=== PATIENT | female | born 1945 | race Two or more races ===

== ENCOUNTER 2017-03-08 15:30 | Emergency (ER) | payer MEDICARE ==
[~2017-03-08] VITALS: Ht 127 cm; Wt 89.5 kg
[2017-03-08 16:47] LABS: Urine Bacteria NONE SEEN /hpf (None Seen); Urine Blood Negative /uL (Negative); Urine Specific Gravity 1.007 (1.001-1.035); Urine WBC 2 /hpf (0 - 5)
[2017-03-08 16:50] LABS: Basophils # (auto) 0.1 uL; Eosinophils # (auto) 0.5 uL; Eosinophils % (auto) 5.5 % (0.0-7.0); Hematocrit 39.6 % (36.0-46.0); Hemoglobin 13.5 g/dL (12.2-16.2); Lymphocytes # (auto) 2.3 uL; Mean Corpuscular Hgb Conc. 34.2 g/dL (32.0-36.0); Mean Corpuscular Volume 96.7 fL (80.0-100.0); Monocytes # (auto) 0.7 uL; Monocytes % (auto) 7.9 % (0.0-12.0); Neutrophils # (auto) 5.1 uL; Neutrophils % (auto) 58.6 % (37.0-80.0); Platelet Count (auto) 283 10^3/uL (140-450); Red Cell Distribution Width 13.6 % (11.8-14.3); White Blood Cell 8.7 10^3/uL (4.4-10.8)
[2017-03-08 17:04] LABS: Alanine Aminotransferase 33 U/L (13-56); Anion Gap 11 (5-15); Aspartate Aminotransferase 34 U/L (15-37); BUN/Creatinine Ratio 17.7; Blood Urea Nitrogen 17 mg/dL (7-18); Calcium 9.1 mg/dL (8.5-10.1); Carbon Dioxide 26 mmol/L (21-32); Chloride 101 mmol/L (98-107); GFR African American 73 mL/min; GFR Non-African American 61 mL/min; Glucose 189 mg/dL (74-106); Potassium 4.3 mmol/L (3.5-5.1); Sodium 138 mmol/L (136-145)
[2017-03-08 17:09] LABS: Alkaline Phosphatase 114 U/L (45-117); Bilirubin, Total 0.4 mg/dL (0.2-1.0); Total Protein 8.1 g/dL (6.4-8.2)
[2017-03-08 19:22] VITALS: BP 152/70
== END 2017-03-08 20:41 | disposition home or self-care (01) ==
LOC: ER 15:43
DX: R60.0 Localized edema (principal); M19.90 Unspecified osteoarthritis, unspecified site; E11.9 Type 2 diabetes mellitus without complications; I11.0 Hypertensive heart disease with heart failure; I50.42 Chronic combined systolic (congestive) and diastolic (congestive) heart failure
CPT/HCPCS: 36415; 71046; 80053; 81001; 83880; 84484; 85025; 93005; 93970

== ENCOUNTER 2017-03-21 14:53 | Emergency (ER) | payer MEDICARE ==
[~2017-03-21] VITALS: Ht 121.9 cm; Wt 89.8 kg
[2017-03-21 15:16] VITALS: BP 102/59
== END 2017-03-21 19:16 | disposition home or self-care (01) ==
LOC: ER 14:53
DX: S92.351A Displaced fracture of fifth metatarsal bone, right foot, initial encounter for closed fracture (principal); S80.01XA Contusion of right knee, initial encounter; I10 Essential (primary) hypertension; E11.9 Type 2 diabetes mellitus without complications; W19.XXXA Unspecified fall, initial encounter; Y93.89 Activity, other specified; Y92.89 Other specified places as the place of occurrence of the external cause; Y99.8 Other external cause status
CPT/HCPCS: 29515; 73562; 73630

== ENCOUNTER 2022-07-25 22:45 | Inpatient (IN) | payer MEDICARE ==
[~2022-07-25] VITALS: Ht 152.4 cm; Wt 91.8 kg
[2022-07-25] MEDS ORDERED: CALCIUM GLUC 1,000mg/50ml-NS 50 ML IV ONE (23:00)
[2022-07-25] MEDS ORDERED: SODIUM BICARBONATE 8.4 % INJ 50ML VIAL IV ONE (23:00)
[2022-07-25 23:23] LABS: Basophils # (auto) 0.1 10 ^3/uL (0-0.2); Basophils % (auto) 0.7 % (0.0-2.0); Eosinophils # (auto) 0.1 10 ^3/uL (0-0.8); Eosinophils % (auto) 1.5 % (0.0-7.0); Hematocrit 33.7 % (36.0-46.0); Hemoglobin 11.6 g/dL (12.2-16.2); Lymphocytes # (auto) 0.8 10 ^3/uL (0.4-5.4); Lymphocytes % (auto) 9.7 % (10.0-50.0); Mean Corpuscular Hemoglobin 31.6 pg (28.0-32.0); Mean Corpuscular Hgb Conc. 34.5 g/dL (32.0-36.0); Mean Corpuscular Volume 91.6 fL (80.0-100.0); Monocytes # (auto) 0.5 10 ^3/uL (0-1.3); Monocytes % (auto) 6.3 % (0.0-12.0); Neutrophils # (auto) 6.9 10 ^3/uL (1.6-8.6); Neutrophils % (auto) 81.8 % (37.0-80.0); Red Blood Cells 3.68 10^6/uL (4.0-5.20); Red Cell Distribution Width 12.5 % (11.8-14.3); White Blood Cell 8.5 10^3/uL (4.4-10.8)
[2022-07-25 23:33] LABS: INR 1.03 (0.9-1.15); Partial Thromboplastin Time 31.4 sec (24.6-33.4)
[2022-07-25 23:40] LABS: Calcium 8.5 mg/dL (8.5-10.1); Magnesium 2.7 mg/dL (1.6-2.6); Potassium 4.9 mmol/L (3.5-5.1)
[2022-07-25 23:43] LABS: Bilirubin, Total 0.3 mg/dL (0.2-1.0); Total Protein 7.2 g/dL (6.4-8.2)
[2022-07-26] MEDS ORDERED: NITROGLYCERIN 0.4 MG SL TAB SL PRN (06:45)
[2022-07-26] MEDS ORDERED: DEXTROSE (50%) 50ML SYRG IV PRN (06:45)
[2022-07-26] MEDS ORDERED: ONDANSETRON HCL 4 MG/2 ML VIAL IV PRN (06:45)
[2022-07-26] MEDS ORDERED: MORPHINE SULFATE INJ 2 MG/ml SYRG IV PRN (06:45)
[2022-07-26 07:05] LABS: Urine Bacteria NONE SEEN /hpf (None Seen); Urine Blood Negative /uL (Negative); Urine Specific Gravity 1.012 (1.001-1.035); Urine WBC 723 /hpf (0 - 5); Urine WBC Clumps PRESENT /hpf (None Seen)
[2022-07-26] MEDS: SODIUM CHLORIDE 0.9% 1,000 ML IV SCH ×2 (07:39→21:28)
[2022-07-26] MEDS ORDERED: PANTOPRAZOLE 40 MG/10 ML VIAL INJ IV SCH (10:00)
[2022-07-26] MEDS ORDERED: GLUCAGON EMERG KIT 1mg/1ml IV ONE (11:00)
[2022-07-26] MEDS ORDERED: ATOR-47 PO (11:07)
[2022-07-26 11:31] LABS: Cholesterol 116 mg/dL (< 200)
[2022-07-26 11:34] LABS: HDL Cholesterol 30 mg/dL (40-59); LDL Cholesterol 72 mg/dL (< 100); Triglycerides 160 mg/dL (< 150)
[2022-07-26 11:37] LABS: Free T3 1.8 pg/mL (2.3-4.2); Free T4 (Free Thyroxine) 1.08 ng/dL (0.89-1.76)
[2022-07-26] MEDS: DOPamine 1600MCG/ML D5W 250 ML IV SCH (11:55)
[2022-07-26] MEDS: InsuLIN REG 1unit/0.01ml Soln (100units/ml) SC SCH ×2 (12:00→18:30)
[2022-07-26] MEDS: ACCU-CHEK COMFORT CURVE STRIP VI SCH ×2 (12:01→18:05)
[2022-07-26] MEDS: ASPirin 81 mg TAB PO SCH (20:56)
[2022-07-26] MEDS ORDERED: PANTOPRAZOLE 40 MG/10 ML VIAL INJ IV ONE (21:15)
[2022-07-26] MEDS ORDERED: FAMOTIDINE 20 MG TAB PO ONE (21:15)
[2022-07-26] MEDS ORDERED: ACETAMINOPHEN 325 MG TAB PO ONE (22:45)
[2022-07-27] VITALS (11 sets, daily range): BP systolic 97–142; BP diastolic 35–50
[2022-07-27] MEDS: DOPamine 1600MCG/ML D5W 250 ML IV SCH (00:30)
[2022-07-27] MEDS: ACCU-CHEK COMFORT CURVE STRIP VI SCH ×4 (01:55→16:52)
[2022-07-27] MEDS: InsuLIN REG 1unit/0.01ml Soln (100units/ml) SC SCH ×4 (02:06→17:57)
[2022-07-27 05:36] LABS: Basophils # (auto) 0 10 ^3/uL (0-0.2); Basophils % (auto) 0.3 % (0.0-2.0); Eosinophils # (auto) 0.1 10 ^3/uL (0-0.8); Eosinophils % (auto) 0.7 % (0.0-7.0); Hematocrit 35.7 % (36.0-46.0); Hemoglobin 12.5 g/dL (12.2-16.2); Lymphocytes # (auto) 0.8 10 ^3/uL (0.4-5.4); Lymphocytes % (auto) 6.7 % (10.0-50.0); Mean Corpuscular Hemoglobin 31.4 pg (28.0-32.0); Mean Corpuscular Volume 89.5 fL (80.0-100.0); Monocytes # (auto) 1.6 10 ^3/uL (0-1.3); Monocytes % (auto) 12.5 % (0.0-12.0); Neutrophils % (auto) 79.8 % (37.0-80.0); Nucleated Red Blood Cells % 0.4 %; Red Blood Cells 3.99 10^6/uL (4.0-5.20); White Blood Cell 12.5 10^3/uL (4.4-10.8)
[2022-07-27 06:01] LABS: Potassium 4.3 mmol/L (3.5-5.1)
[2022-07-27 06:10] LABS: Albumin 3.5 g/dL (3.4-5.0); BUN/Creatinine Ratio 34.2 (10.0-20.0); Bilirubin, Total 0.7 mg/dL (0.2-1.0); Total Protein 7.3 g/dL (6.4-8.2)
[2022-07-27] MEDS ORDERED: fentaNYL CITRATE 100 MCG/2 ML VL ONE (07:45)
[2022-07-27] MEDS ORDERED: VANCOMYCIN HCL 1000 MG VL ONE ×2 (07:45→08:24)
[2022-07-27] MEDS ORDERED: MIDAZOLAM HCL 2MG/2ML 2ml VIAL (1mg/ml) ONE (07:45)
[2022-07-27] MEDS ORDERED: LIDOCAINE 2%HCL (LOCAL ANESTH.) INJ 20ML MDV ONE ×2 (07:46→09:22)
[2022-07-27] MEDS ORDERED: VANCOMYCIN 1GM/250ML 250 ML IV ONE (07:46)
[2022-07-27] MEDS ORDERED: HEPARIN IN NS 1000Units/500mL 0 ML ONE (07:46)
[2022-07-27] MEDS: FUROSEMIDE 20 MG/2 ML VIAL IV SCH (10:00)
[2022-07-27] MEDS ORDERED: PANTOPRAZOLE 40 MG/10 ML VIAL INJ IV SCH (10:00)
[2022-07-27] MEDS ORDERED: SODIUM CHLORIDE 0.9% 500 ML IV ONE (15:15)
[2022-07-27] MEDS: ceFAZolin 1GM/50ML 50 ML IV SCH ×2 (16:51→21:48)
[2022-07-27] MEDS: SODIUM CHLORIDE 0.9% 1,000 ML IV SCH ×2 (16:52→21:55)
[2022-07-27] MEDS ORDERED: CARV25TA55 PO (17:19)
[2022-07-27] MEDS ORDERED: BUME1TAB3 PO (17:19)
[2022-07-27] MEDS ORDERED: LEVO125T7 PO (17:19)
[2022-07-27] MEDS ORDERED: POTA10TA51 PO (17:19)
[2022-07-27] MEDS ORDERED: AMLO1TAB22 PO (17:19)
[2022-07-27] MEDS ORDERED: PREG75CA PO (17:19)
[2022-07-27] MEDS ORDERED: ATOR-47 PO (17:19)
[2022-07-27] MEDS ORDERED: TAMS0.4C36 PO (17:19)
[2022-07-27] MEDS: VANCOMYCIN 1GM/250ML 250 ML IV SCH (21:48)
[2022-07-28] MEDS: ACCU-CHEK COMFORT CURVE STRIP VI SCH ×4 (01:35→17:57)
[2022-07-28] MEDS ORDERED: DOCUSATE SOD 100 MG CAP PO ONE (02:45)
[2022-07-28] MEDS ORDERED: ACETAMINOPHEN 325 MG TAB PO ONE (02:45)
[2022-07-28 05:08] VITALS: BP 141/60
[2022-07-28] MEDS: ceFAZolin 1GM/50ML 50 ML IV SCH ×3 (05:15→22:01)
[2022-07-28] MEDS: InsuLIN REG 1unit/0.01ml Soln (100units/ml) SC SCH ×4 (05:26→17:58)
[2022-07-28 06:43] LABS: Basophils # (auto) 0.1 10 ^3/uL (0-0.2); Basophils % (auto) 0.8 % (0.0-2.0); Eosinophils # (auto) 0.2 10 ^3/uL (0-0.8); Eosinophils % (auto) 2.9 % (0.0-7.0); Hematocrit 31.7 % (36.0-46.0); Hemoglobin 10.8 g/dL (12.2-16.2); Lymphocytes # (auto) 1.3 10 ^3/uL (0.4-5.4); Mean Corpuscular Hemoglobin 31.2 pg (28.0-32.0); Mean Corpuscular Volume 91.9 fL (80.0-100.0); Monocytes # (auto) 1.1 10 ^3/uL (0-1.3); Monocytes % (auto) 13.4 % (0.0-12.0); Neutrophils # (auto) 5.4 10 ^3/uL (1.6-8.6); Neutrophils % (auto) 66.9 % (37.0-80.0); Red Blood Cells 3.45 10^6/uL (4.0-5.20); White Blood Cell 8.1 10^3/uL (4.4-10.8)
[2022-07-28 06:45] LABS: Potassium 3.2 mmol/L (3.5-5.1)
[2022-07-28 06:53] LABS: Albumin 2.9 g/dL (3.4-5.0); BUN/Creatinine Ratio 30.1 (10.0-20.0); Bilirubin, Total 0.7 mg/dL (0.2-1.0); Calcium 8.6 mg/dL (8.5-10.1); Total Protein 6.9 g/dL (6.4-8.2)
[2022-07-28 08:00] VITALS: BP 154/61
[2022-07-28] MEDS: VANCOMYCIN 1GM/250ML 250 ML IV SCH (09:34)
[2022-07-28] MEDS: ASPirin 81 mg TAB PO SCH (09:35)
[2022-07-28] MEDS: FUROSEMIDE 20 MG/2 ML VIAL IV SCH (09:35)
[2022-07-28 12:00] VITALS: BP 159/73
[2022-07-28] MEDS: POTASSIUM CHL 20MEQ/100ML 100 ML IV SCH ×2 (14:00→16:25)
[2022-07-28] MEDS: PANTOPRAZOLE 40 MG/10 ML VIAL INJ IV SCH (14:41)
[2022-07-28] MEDS: SODIUM CHLORIDE 0.9% 1,000 ML IV SCH (14:41)
[2022-07-28 16:00] VITALS: BP 155/67
[2022-07-28] MEDS ORDERED: POTASSIUM CHL 20MEQ/100ML 100 ML IV SCH (19:15)
[2022-07-28] MEDS ORDERED: ATORVASTATIN 20 MG TAB PO SCH (22:00)
[2022-07-28] MEDS: CARVEDILOL 3.125 MG TAB PO SCH (22:02)
[2022-07-28] MEDS: HYDROcodone-ACET 5/325MG TAB PO PRN (23:27)
[2022-07-29] MEDS: ACCU-CHEK COMFORT CURVE STRIP VI SCH ×3 (00:15→11:31)
[2022-07-29] MEDS: InsuLIN REG 1unit/0.01ml Soln (100units/ml) SC SCH ×3 (00:17→11:31)
[2022-07-29] MEDS: hydrALAZINE HCL 20 MG/ML VL IV PRN ×2 (00:18→06:32)
[2022-07-29] MEDS: SODIUM CHLORIDE 0.9% 1,000 ML IV SCH (01:25)
[2022-07-29] MEDS: HYDROcodone-ACET 5/325MG TAB PO PRN ×2 (01:47→07:43)
[2022-07-29 05:00] VITALS: BP 166/61
[2022-07-29] MEDS: ceFAZolin 1GM/50ML 50 ML IV SCH (06:17)
[2022-07-29 09:00] VITALS: BP 160/55
[2022-07-29] MEDS: FUROSEMIDE 20 MG/2 ML VIAL IV SCH (10:00)
[2022-07-29] MEDS: ASPirin 81 mg TAB PO SCH (10:00)
[2022-07-29] MEDS: PANTOPRAZOLE 40 MG/10 ML VIAL INJ IV SCH (10:00)
[2022-07-29] MEDS ORDERED: POTASSIUM CHL 20 Meq TABLET PO SCH (10:00)
[2022-07-29] MEDS: CARVEDILOL 3.125 MG TAB PO SCH (10:01)
[2022-07-29] MEDS ORDERED: DOXY-286 PO (10:38)
[2022-07-29] MEDS ORDERED: CAR3125T PO (10:38)
[2022-07-29 11:02] VITALS: BP 160/55
[2022-07-29] MEDS ORDERED: HYDR-4902 PO (11:56)
== END 2022-07-29 12:45 | disposition home or self-care (01) | DRG 242 ==
LOC: EDBD 22:45 → ER 22:45 → TELE 07-26 06:42 → TELE-WESTW 07-27 15:14
PROVIDERS: ADMIT Nurse Practitioner; ATTEND Internal Medicine
PROC: 0JH606Z Insertion of Pacemaker, Dual Chamber into Chest Subcutaneous Tissue and Fascia, Open Approach (ICD-10-PCS; principal; 2022-07-27)
PROC: 02H63JZ Insertion of Pacemaker Lead into Right Atrium, Percutaneous Approach (ICD-10-PCS; 2022-07-27)
PROC: B517YZA Fluoroscopy of Left Subclavian Vein using Other Contrast, Guidance (ICD-10-PCS; 2022-07-27)
PROC: 02HK3JZ Insertion of Pacemaker Lead into Right Ventricle, Percutaneous Approach (ICD-10-PCS; 2022-07-27)
DX: R00.1 Bradycardia, unspecified (principal); I50.43 Acute on chronic combined systolic (congestive) and diastolic (congestive) heart failure; N17.0 Acute kidney failure with tubular necrosis; E87.1 Hypo-osmolality and hyponatremia; N39.0 Urinary tract infection, site not specified; I11.0 Hypertensive heart disease with heart failure; E11.9 Type 2 diabetes mellitus without complications; E03.9 Hypothyroidism, unspecified; Z79.899 Other long term (current) drug therapy; R94.31 Abnormal electrocardiogram [ECG] [EKG]
CPT/HCPCS: 33208; 36415; 70450; 71045; 80053; 80061; 81001; 82962; 83735; 83880; 84439; 84443; 84481; 84484; 85025; 85610; 85730; 86850; 86900; 86901; 93005; 93306; 99152; 99153; 99291; C9113; G0378; J0690; J1815; J2250; J3480